=== PATIENT | male | born 1970 | race Caucasian/White ===

== ENCOUNTER 2016-07-09 19:12 | Emergency (ER) | payer BC, OTHER ==
[~2016-07-09] VITALS: Ht 182.9 cm; Wt 137.1 kg
[~2016-07-09 19:12] MED LIST: DESYREL100 MG PO; EFFEXOR50 MG PO; FLUOXETINE HCL40 MG PO; IBUPROFEN400 MG PO; NORCO 5/3251 TABLET PO; VIBRAMYCIN100 MG PO; WELLBUTRIN100 MG PO; ZITHROMAX Z-PA250 MG PO; ZOFRAN4 MG PO
[2016-07-09 19:14] VITALS: BP 160/90
[2016-07-09 19:30] LABS: ADD MIUA? NO; BILIRUBIN NEGATIVE; BLOOD NEGATIVE; COLOR YELLOW ((YELLOW)); GLUCOSE (STRIP) NEGATIVE; KETONES NEGATIVE; LEUKOCYTES NEGATIVE; NITRITE NEGATIVE; PROTEIN (STRIP) NEGATIVE; SPECIFIC GRAVITY 1.019 (1.000-1.030); UCUL ADDED? NO; UROBILINOGEN 0.2 MG/DL (0.2-1.0)
[2016-07-09 20:29] LABS: HEMATOCRIT 43.1 % (38.0-50.0); MCHC 34.3 G/DL (30.0-36.0); MCV 84.5 FL (86-99); MEAN PLAT.VOLUME 10.2 uM^3 (9.0-12.4); PLATELET COUNT 231 K/uL (156-360); RBC DIS.WIDTH-SD 42.1 % (39-53); WHITE BLOOD COUNT 10.8 K/uL (4.1-10.2)
[2016-07-09 20:45] LABS: CHLORIDE 107 mEq/L (99-109)
[2016-07-09 20:46] LABS: SODIUM 140 mEq/L (136-147)
[2016-07-09 20:48] LABS: GLUCOSE 97 mg/dL (70-99)
[2016-07-09 20:49] LABS: ANION GAP 9 MEQ/L (2-14)
[2016-07-09 20:50] LABS: TOTAL BILIRUBIN 0.3 mg/dL (0.0-1.0)
[2016-07-09 20:51] LABS: ALKALINE PHOSPHATASE 50 IU/L (3-129); GFR ESTIMATE (CALCULATED) > 59 mL/min/
[2016-07-09 20:53] LABS: UREA NITROGEN (BUN) 14 mg/dL (9-23)
[2016-07-21] MEDS ORDERED: TYLENOL REGULA325 MG PO (10:33)
== END 2016-07-09 21:41 | disposition left against medical advice (07) ==
LOC: EME 19:12
DX: K42.9 Umbilical hernia without obstruction or gangrene (principal); Z53.21 Procedure and treatment not carried out due to patient leaving prior to being seen by health care provider
CPT/HCPCS: 80053; 81003; 85027

== ENCOUNTER 2016-07-24 09:22 | Day surgery (SDC) | payer BC, OTHER ==
[~2016-07-24] VITALS: Ht 182.9 cm; Wt 132.0 kg
[~2016-07-24 09:22] MED LIST changes: +TYLENOL REGULA325 MG PO
[2016-07-24 09:54] VITALS: BP 125/72
[2016-07-24] MEDS ORDERED: TYLENOL EXTRA500 MG PO (10:02)
[2016-07-24] MEDS ORDERED: COLACE100 MG PO (13:13)
[2016-07-24] MEDS ORDERED: PERCOCET 5/31 TABLET PO (13:13)
[2016-07-24 14:36] VITALS: BP 140/74
[2016-07-24 15:40] VITALS: BP 123/68
[2016-07-24] MEDS ORDERED: NORCO 5/3251 TABLET PO (16:18)
[2016-07-24 16:28] VITALS: BP 119/57
== END 2016-07-24 16:04 | disposition home or self-care (01) ==
LOC: SDC 09:22
DX: K43.2 Incisional hernia without obstruction or gangrene (principal); M77.42 Metatarsalgia, left foot; E78.5 Hyperlipidemia, unspecified; E66.01 Morbid (severe) obesity due to excess calories; F32.9 Major depressive disorder, single episode, unspecified; Z68.41 Body mass index [BMI] 40.0-44.9, adult
CPT/HCPCS: C1781; J0330; J0690; J1100; J1170; J1885; J2405; J2710; J2765; J3010

== ENCOUNTER 2016-09-22 13:29 | Emergency (ER) | payer BC, OTHER ==
[~2016-09-22] VITALS: Ht 182.9 cm; Wt 137.4 kg
[~2016-09-22 13:29] MED LIST changes: +COLACE100 MG PO; +PERCOCET 5/31 TABLET PO; +TYLENOL EXTRA500 MG PO
[2016-09-22 17:02] VITALS: BP 116/85
== END 2016-09-22 17:04 | disposition home or self-care (01) ==
LOC: EME 13:29
PROC: 0H90XZZ Drainage of Scalp Skin, External Approach (ICD-10-PCS; principal; 2016-09-22)
DX: L02.811 Cutaneous abscess of head [any part, except face] (principal)
CPT/HCPCS: 99281; 99284; J2270

== ENCOUNTER 2017-12-23 04:56 | Emergency (ER) | payer OTHER ==
[~2017-12-23] VITALS: Ht 182.9 cm; Wt 134.4 kg
[2017-12-23 05:20] LABS: HEMATOCRIT 46.1 % (38.0-50.0); MCH 29.4 PG (29.0-34.0); MCHC 34.7 G/DL (30.0-36.0); MCV 84.7 FL (86-99); PLATELET COUNT 243 K/uL (156-360); RBC DIS.WIDTH-CV 13.5 % (11.8-14.6); RBC DIS.WIDTH-SD 41.4 % (39-53); RED BLOOD COUNT 5.44 M/uL (4.00-5.50); WHITE BLOOD COUNT 8.1 K/uL (4.1-10.2)
[2017-12-23 05:30] LABS: ALBUMIN 4.9 g/dL (3.2-4.8)
[2017-12-23 05:31] LABS: CHLORIDE 107 mEq/L (99-109); POTASSIUM 4.3 mEq/L (3.7-5.4); SODIUM 140 mEq/L (136-147)
[2017-12-23 05:34] LABS: GLUCOSE 149 mg/dL (70-99)
[2017-12-23 05:35] LABS: TOTAL BILIRUBIN 0.6 mg/dL (0.0-1.0)
[2017-12-23 05:36] LABS: ALKALINE PHOSPHATASE 59 IU/L (3-129)
[2017-12-23 05:37] LABS: GFR ESTIMATE (CALCULATED) > 59 mL/min/ (58.99-99999)
[2017-12-23 05:38] LABS: AST (GOT) 28 IU/L (2-34); UREA NITROGEN (BUN) 15 mg/dL (9-23)
[2017-12-23 05:39] LABS: ALT (GPT) 58 IU/L (3-49)
[2017-12-23 05:45] LABS: TROP-I INTERPRETATION NEGATIVE; TROPONIN-I < 0.01 ng/mL (0.0-0.30)
[2017-12-23 09:33] LABS: TROP-I INTERPRETATION NEGATIVE; TROPONIN-I < 0.01 ng/mL (0.0-0.30)
[2017-12-23 10:19] VITALS: BP 136/91
[2017-12-24] MEDS ORDERED: TAMSULOSIN HCL0.4 MG PO (10:54)
[2017-12-24] MEDS ORDERED: TYLENOL REGULA325 MG PO (10:55)
[2017-12-24] MEDS ORDERED: ADVIL,NUPRIN,M200 MG PO (10:55)
[2017-12-24] MEDS ORDERED: LISINOPRIL10 MG PO (10:55)
[2017-12-24] MEDS ORDERED: LEVOFLOXACIN500 MG PO (10:55)
== END 2017-12-23 10:28 | disposition home or self-care (01) ==
LOC: EME 04:56
PROVIDERS: Emergency Medicine
DX: R07.89 Other chest pain (principal); R20.2 Paresthesia of skin; G50.0 Trigeminal neuralgia; I10 Essential (primary) hypertension; F32.9 Major depressive disorder, single episode, unspecified; Z87.442 Personal history of urinary calculi
CPT/HCPCS: 70450; 70551; 71045; 80053; 84484; 85027; 93005; 99281; 99285

== ENCOUNTER 2017-12-24 07:03 | Observation (INO) | payer OTHER ==
[~2017-12-24] VITALS: Ht 182.9 cm; Wt 133.5 kg
[2017-12-24 08:14] LABS: HEMATOCRIT 45.3 % (38.0-50.0); HEMOGLOBIN 15.8 G/DL (12.5-16.6); MCH 29.4 PG (29.0-34.0); MCHC 34.9 G/DL (30.0-36.0); MCV 84.4 FL (86-99); PLATELET COUNT 225 K/uL (156-360); RBC DIS.WIDTH-CV 13.4 % (11.8-14.6); RBC DIS.WIDTH-SD 41.6 % (39-53); RED BLOOD COUNT 5.37 M/uL (4.00-5.50)
[2017-12-24 08:23] LABS: INTER. NORMALIZED RATIO 1.2
[2017-12-24 08:25] LABS: D-DIMER ELISA < 150.00 ng/mLDDU (<230); PTT 28.3 SEC (25-37)
[2017-12-24 08:35] LABS: CHLORIDE 107 MEQ/L (99-109); POTASSIUM 4.1 MEQ/L (3.7-5.4); SODIUM 140 MEQ/L (136-147)
[2017-12-24 08:41] LABS: CREATININE 0.9 MG/DL (0.6-1.3); GFR ESTIMATE (CALCULATED) > 59 mL/min/ (58.99-99999); UREA NITROGEN (BUN) 14 mg/dL (9-23)
[2017-12-24 08:44] LABS: GLUCOSE 109 mg/dL (70-99)
[2017-12-24 09:21] LABS: TROP-I INTERPRETATION NEGATIVE; TROPONIN-I < 0.01 ng/mL (0.0-0.30)
[2017-12-24] MEDS ORDERED: TAMSULOSIN HCL0.4 MG PO (10:54)
[2017-12-24] MEDS ORDERED: LEVOFLOXACIN500 MG PO (10:55)
[2017-12-24] MEDS ORDERED: ADVIL,NUPRIN,M200 MG PO (10:55)
[2017-12-24] MEDS ORDERED: LISINOPRIL10 MG PO (10:55)
[2017-12-24] MEDS ORDERED: TYLENOL REGULA325 MG PO (10:55)
[2017-12-24 14:19] LABS: TROP-I INTERPRETATION NEGATIVE; TROPONIN-I 0.01 ng/mL (0.0-0.30)
[2017-12-24 15:56] LABS: HDL CHOLESTEROL 42 MG/DL (Desirable>=40); LDL CHOLESTEROL 113 mg/dL (Desirable<100); NON-HDL CHOLESTEROL 134 mg/dL (Desirable<160); TOTAL CHOLESTEROL 176 mg/dL (Desirable<200); TRIGLYCERIDES 104 MG/DL (Normal: <150)
[2017-12-24 19:07] VITALS: BP 132/75
[2017-12-24 22:10] LABS: TROP-I INTERPRETATION NEGATIVE; TROPONIN-I < 0.01 ng/mL (0.0-0.30)
[2017-12-24 23:34] VITALS: BP 90/57
[2017-12-25 03:59] VITALS: BP 102/51
[2017-12-25 05:54] LABS: ALBUMIN 4.2 G/DL (3.2-4.8); ALKALINE PHOSPHATASE 48 IU/L (3-129); ALT (GPT) 40 IU/L (3-49); AST (GOT) 21 IU/L (2-34); CHLORIDE 108 MEQ/L (99-109); CREATININE 0.9 MG/DL (0.6-1.3); GFR ESTIMATE (CALCULATED) > 59 mL/min/ (58.99-99999); GLUCOSE 92 mg/dL (70-99); POTASSIUM 3.9 MEQ/L (3.7-5.4); SODIUM 142 MEQ/L (136-147); TOTAL PROTEIN 6.2 G/DL (6.4-8.3); UREA NITROGEN (BUN) 15 mg/dL (9-23)
[2017-12-25 06:11] LABS: TOTAL BILIRUBIN 0.6 MG/DL (0.0-1.0)
[2017-12-25 08:02] VITALS: BP 132/61
[2017-12-25 11:27] VITALS: BP 121/73
[2017-12-25] MEDS ORDERED: PROZAC20 MG PO (11:45)
[2017-12-25] MEDS ORDERED: ASPIR-LOW81 MG PO (11:45)
[2017-12-25] MEDS ORDERED: VALIUM2 MG PO (11:45)
[2017-12-25 12:33] LABS: THYROTROPIN (TSH) 3.1 MIU/L (0.4-5.5)
== END 2017-12-25 13:27 | disposition home or self-care (01) ==
LOC: EME 07:03 → 4SOUTH 14:53 → EDOF 14:53 → ENRESERV 14:54 → 4SOUTH 16:38
PROVIDERS: Nurse Practitioner Family; Student in an Organized Health Care Education/Training Program
PROC: B246ZZZ Ultrasonography of Right and Left Heart (ICD-10-PCS; principal; 2017-12-24)
DX: R07.89 Other chest pain (principal); R20.2 Paresthesia of skin; R00.1 Bradycardia, unspecified; I45.10 Unspecified right bundle-branch block; I10 Essential (primary) hypertension; E66.9 Obesity, unspecified; Z68.39 Body mass index [BMI] 39.0-39.9, adult; F41.0 Panic disorder [episodic paroxysmal anxiety]; N40.0 Benign prostatic hyperplasia without lower urinary tract symptoms; R06.02 Shortness of breath; Z82.49 Family history of ischemic heart disease and other diseases of the circulatory system; Z83.3 Family history of diabetes mellitus
CPT/HCPCS: 71046; 80048; 80053; 80061; 83880; 84439; 84443; 84484; 85027; 85379; 85610; 85730; 93005; 93306; 93971; 94640; 99281; 99285; G0378; J1650; J2060; J7030